=== PATIENT | female | born 1965 | race Hispanic/Latino ===

== ENCOUNTER 2017-09-07 05:25 | Emergency (ER) | payer SELFPAY ==
[2017-09-07] MEDS ORDERED: diphenhydrAMINE 50 MG/ML VIAL ONE (05:59)
[2017-09-07] MEDS ORDERED: Metoclopramide HCl 10 MG/2 ML VIAL ONE (05:59)
[2017-09-07 06:37] LABS: #Basophils 0.1 thou/uL (0.0-0.2); #Eosinphils 0.1 thou/uL (0.0-0.7); #Lymphocytes 1.6 thou/uL (1.20-3.40); #Monocytes 0.6 thou/uL (0.11-0.59); #Neutrophils 3.8 thou/uL (1.40-6.50); %Basophils 1.1 % (0.0-1.0); %Eosinophils 2.2 % (0.0-10.0); %Lymphocytes 25.7 % (21.0-51.0); Hematocrit 39.6 % (36.0-47.0); Mean Platelet Volume 7.4 fL (7.4-10.4); Red Blood Cell (RBC) Count 4.65 mill/uL (4.20-5.40); White Blood Cell (WBC) Count 6.1 thou/uL (4.8-10.8)
[2017-09-07 06:43] LABS: Prothrombin Time 12.8 SEC (12.0-14.7)
[2017-09-07 06:52] LABS: ALT (SGPT) 46 U/L (8-55); AST (SGOT) 26 U/L (5-34); Alkaline Phosphatase 150 U/L (40-150); Anion Gap 10 mmol/L (10-20); BUN (Urea Nitrogen) 19 mg/dL (9.8-20.1); Bilirubin, Total 0.4 mg/dL (0.2-1.2); Calc. Creatinine Clearance 0 mL/min (70-130); Calcium 9.8 mg/dL (7.8-10.44); Carbon Dioxide 26 mmol/L (22-29); Chloride 105 mmol/L (98-107); Estimated GFR-MDRD Greater than 90; Globulin 3.3 g/dL (2.4-3.5); Protein, Total 7.3 g/dL (6.0-8.3)
--- NOTE | 2017-09-07 07:09 | CT ---
PRELIMINARY REPORT/[facility]/EMERGENCY AFTER HOURS PROCEDURE: EXAM: CT Head Without Intravenous Contrast CLINICAL HISTORY: 52 years old, female; Pain; Headache; Patient HX: F52 presents to ed for headache. Pt reports headach e that woke her up around 4am this morning. Pt denies HX of migraines. Pt reports temporal and fronta l headache with tightness to the back of her neck. Pt denies any recent trauma/injury. Pt denies fever, chills, runny nose, congestion, visual changes, chest pain, or any recent sick contacts . Pt reports some stress reporting she is caring for her mother but reports this hasn't changed rece ntly. Pt reports some photophobia. Pt reports taking 2 ibuprofen. TECHNIQUE: Axial computed tomography images of the head/brain without intravenous contrast. COMPARISON: No relevant prior studies available. FINDINGS: No definite acute skull fracture. Included paranasal sinuses are essentially clear. No acute intracranial hemorrhage or mass effect. Ventricle size is normal for age. No definite acute infarct by CT. IMPRESSION: No acute intracranial bleed or mass effect. Thank you for allowing us to participate in the care of your patient. Dictated and Authenticated by: Brian Brown MD 09/07/2017 6:08 AM Central Time ([place] & [place]) FINAL REPORT CT HEAD NONCONTRAST: FINDINGS/IMPRESSION: I agree with the preliminary interpretation provided. No acute intracranial hemorrhage or mass effec t.
== END 2017-09-07 07:31 | disposition home or self-care (01) ==
LOC: ERS 05:25
DX: R51 Headache (principal)
CPT/HCPCS: 70450; 80053; 83735; 85025; 85610; 93005; 96361; 96374; 96375; J1200; J2765

== ENCOUNTER 2019-10-11 18:42 | Emergency (ER) | payer SELFPAY ==
[2019-10-11 19:10] LABS: #Basophils 0.2 thou/uL (0.0-0.2); #Eosinphils 0.2 thou/uL (0.0-0.7); #Lymphocytes 1.7 thou/uL (1.20-3.40); #Monocytes 0.4 thou/uL (0.11-0.59); %Basophils 2.5 % (0.0-1.0); %Eosinophils 2.4 % (0.0-10.0); %Lymphocytes 26.1 % (21.0-51.0); Hemoglobin 13.5 g/dL (12.0-16.0); Mean Corpuscular HGB CONC 33.7 g/dL (32.0-36.0); Mean Corpuscular Hemoglobin 28.5 pg (27.0-31.0); Mean Corpuscular Volume 84.6 fL (78.0-98.0); Mean Platelet Volume 8.3 fL (7.4-10.4); Platelet Count 215 thou/uL (130-400); RBC Distribution Width 11.7 % (11.5-14.5); Red Blood Cell (RBC) Count 4.74 mill/uL (4.20-5.40); White Blood Cell (WBC) Count 6.4 thou/uL (4.8-10.8)
[2019-10-11 19:17] LABS: INR-International Normal Ratio 0.9; PTT 33.7 SEC (22.9-36.1); Prothrombin Time 12.5 SEC (12.0-14.7)
--- NOTE | 2019-10-11 19:18 | CT ---
CT BRAIN NONCONTRAST: DATE: 10/11/2019 HISTORY: 54-year-old female status post acute head trauma from fall, resulting in loss of consciousness. FINDINGS: There is no evidence of acute intra-axial or extra-axial hemorrhage. There is no midline shift or any other mass effect. There is no extra-axial fluid collection. There is no evidence of obstructive hydrocephalus. Calvarium is intact. IMPRESSION: No acute intracranial findings.
--- NOTE | 2019-10-11 19:23 | CT ---
CT CERVICAL SPINE NONCONTRAST: DATE: 10/11/2019 HISTORY: cervical trauma: 54-year-old female status post fall. As requested, this level [address] C-spine report and also CT brain report were called to Dr. Lois garcia at 7:19 PM on 10/11/2019 FINDINGS: There are no jumped or perched facets. There is no evidence of acute fracture. The vertebral body hei ghts are maintained. There is no prevertebral soft tissue swelling. IMPRESSION: No evidence of acute fracture or acute traumatic subluxation.
--- NOTE | 2019-10-11 19:25 | RAD ---
Radiograph right hand 3 views: DATE: 10/11/2019 HISTORY: 54-year-old female status post acute traumatic right hand injury with pain. FINDINGS: There is a minimally displaced oblique fracture of the proximal metaphysis of the fifth proximal phal anx. No disruption or step-off at adjacent fifth MCP joint. No dislocation. IMPRESSION: Minimally displaced, acute, traumatic fracture of proximal metaphysis of fifth proximal phalanx.
--- NOTE | 2019-10-11 19:26 | RAD ---
RADIOGRAPH CHEST 1 VIEW: Supine DATE: 10/11/2019 HISTORY: 54-year-old female status post acute chest trauma from fall FINDINGS: There is no airspace density or pulmonary edema. The lateral costophrenic angles are sharp. Supine po sitioning makes this study insensitive for the detection of pneumothorax. IMPRESSION: No acute pulmonary findings.
[2019-10-11 19:30] LABS: ALT (SGPT) 25 U/L (8-55); AST (SGOT) 22 U/L (5-34); Albumin 4.2 g/dL (3.5-5.0); Alkaline Phosphatase 160 U/L (40-110); Anion Gap 14 mmol/L (10-20); BUN (Urea Nitrogen) 18 mg/dL (9.8-20.1); Bilirubin, Total 0.4 mg/dL (0.2-1.2); Calc. Creatinine Clearance 0 mL/min (70-130); Calcium 9.3 mg/dL (7.8-10.44); Carbon Dioxide 21 mmol/L (22-29); Chloride 107 mmol/L (98-107); Estimated GFR-MDRD 84; Globulin 3.5 g/dL (2.4-3.5); Glucose 121 mg/dL (70-105); Potassium 3.7 mmol/L (3.5-5.1); Protein, Total 7.7 g/dL (6.0-8.3); Sodium 138 mmol/L (136-145)
[2019-10-11] MEDS ORDERED: HYDROcodone/Acetaminophen 5/325 mg Tablet ONE (20:00)
[2019-10-11] MEDS ORDERED: Lidocaine 4% Cream 5 GM TUBE w/ Tegaderm ONE (20:01)
[2019-10-11] MEDS ORDERED: Adacel (T-DAP) 0.5 ML SYRINGE ONE (20:01)
== END 2019-10-11 22:34 | disposition home or self-care (01) ==
LOC: ERS 18:42
DX: S62.616A Displaced fracture of proximal phalanx of right little finger, initial encounter for closed fracture (principal); S01.01XA Laceration without foreign body of scalp, initial encounter; Z23 Encounter for immunization; W01.0XXA Fall on same level from slipping, tripping and stumbling without subsequent striking against object, initial encounter
CPT/HCPCS: 12001; 26720; 70450; 71045; 72125; 80053; 85025; 85610; 85730; 90471; 90715; G0390